=== PATIENT | male | born 1960 | race African-American/Black ===

== ENCOUNTER 2020-01-08 16:01 | Inpatient (IN) | payer MEDICARE, OTHER ==
[~2020-01-08] VITALS: Ht 169.1 cm; Wt 49.0 kg
[2020-01-08] MEDS ORDERED: TOPCARE ASPIRIN81 M1 PO (17:06)
[2020-01-08] MEDS ORDERED: TENORMIN50 MG PO (17:06)
[2020-01-08] MEDS ORDERED: HALDOL DEC100 MG/1 M IM (17:07)
[2020-01-08] MEDS ORDERED: HALDOL DEC50 MG/1 ML IM (17:08)
[2020-01-08] MEDS ORDERED: PROTONIX40 MG PO (17:10)
[2020-01-08] MEDS ORDERED: MELATONIN3 MG PO (17:10)
[2020-01-08] MEDS ORDERED: ENULOSE10 GM/151 PO (17:11)
[2020-01-08] MEDS ORDERED: RIVASTIGMINE T1.5 M1 PO (17:11)
[2020-01-08] MEDS ORDERED: TRIHEXYPHENIDYL2 M3 PO (17:13)
[2020-01-08] MEDS ORDERED: PROAIR HFA8.5 GM INH (17:14)
[2020-01-08] MEDS ORDERED: RISPERDAL2 M1 PO (17:14)
[2020-01-08] MEDS ORDERED: ROBITUSSIN5 ML PO (17:15)
[2020-01-08] MEDS ORDERED: GEODON20 M1 IM (17:15)
[2020-01-08] MEDS ORDERED: HALDOL5 MG/1 ML IM (17:16)
[2020-01-08] MEDS ORDERED: HALOPERIDOL5 MG PO (17:16)
[2020-01-08] MEDS ORDERED: IBUPROFEN600 MG PO (17:17)
[2020-01-09 00:20] VITALS: BP 124/80
[2020-01-09 06:31] LABS: BASO % 0.4 % (0.0-1.0); EOS # 0.1 10*3/uL (0.0-0.4); EOS % 1.4 % (1.0-4.0); HEMATOCRIT 36.9 % (42.0-52.0); LYMPH % 39.6 % (27.0-41.0); MEAN CELL VOLUME 91.6 fl (80.0-94.0); MEAN CORPUSCULAR HGB 28.8 pg (27.0-31.0); MEAN CORPUSCULAR HGB CONC 31.4 g/dl (33.0-37.0); MEAN PLATELET VOLUME 8.4 fl (9.6-12.3); MONO # 0.4 10*3/uL (0.1-1.0); MONO % 8.1 % (3.0-9.0); NEUT # 2.6 10*3/uL (2.3-7.9); NEUT % 50.3 % (47.0-73.0); PLATELET COUNT AUTOMATED 215 10*3/uL (130-400); RED BLOOD COUNT 4.03 10*6/uL (4.50-5.90); WHITE BLOOD COUNT 5.1 10*3/uL (4.8-10.8)
[2020-01-09 06:57] LABS: ALBUMIN 3.1 gm/dl (3.1-4.5); BUN 11 mg/dl (7-24); CHLORIDE 99 mmol/L (98-107); POTASSIUM 4.4 mmol/L (3.5-5.1); SODIUM 134 mmol/L (136-145)
[2020-01-09 07:09] LABS: ALKALINE PHOSPHATASE 44 U/L (45-117); CHOLESTEROL 160 mg/dL (<200); HDL CHOLESTEROL 72 mg/dl (40-60); LDL CHOLESTEROL 79 mg/dL (9-159); SGOT/AST 44 IU/L (3-35); SGPT/ALT 41 U/L (12-78); TOTAL PROTEIN 6.3 gm/dL (6.4-8.2); TRIGLYCERIDES 47 mg/dl (<150); VLDL CHOLESTEROL 9 mg/dL (6-40)
[2020-01-09 07:31] VITALS: BP 131/85
[2020-01-09 12:32] LABS: BILIRUBIN NEGATIVE (NEGATIVE); BLOOD NEGATIVE (NEGATIVE); CLARITY CLEAR (CLEAR); COLOR YELLOW (YELLOW); EPITHELIAL CELLS 0-2; GLUCOSE NEGATIVE (NEGATIVE); KETONE TRACE (NEGATIVE); LEUKO ESTERASE NEGATIVE (NEGATIVE); NITRITE NEGATIVE (NEGATIVE); PH 7.5 (5.0-9.0); RBC 0-2 rbc/hpf (0-2); SPECIFIC GRAVITY 1.005 (1.005-1.030); UROBILINOGEN 0.2 E.U./dl (0.2-1.0); WBC 0-2 wbc/hpf (0-5)
[2020-01-09 12:33] LABS: YEAST 1+
[2020-01-09 13:24] LABS: VITAMIN D, 25-HYDROXY 21.9 ng/mL (30-100)
[2020-01-09 20:00] VITALS: BP 117/74
[2020-01-10 07:26] VITALS: BP 128/83
[2020-01-10 19:40] VITALS: BP 112/67
[2020-01-11 07:20] VITALS: BP 129/75
[2020-01-11] MEDS ORDERED: DEPAKOTE500 MG PO (09:48)
[2020-01-11] MEDS ORDERED: RISPERDAL3 M1 PO (09:50)
== END 2020-01-11 13:19 | DRG 885 ==
LOC: 3N 16:01
PROVIDERS: ADMIT Psychiatry & Neurology Psychiatry
DX: F25.9 Schizoaffective disorder, unspecified (principal); F03.90 Unspecified dementia, unspecified severity, without behavioral disturbance, psychotic disturbance, mood disturbance, and anxiety; E11.9 Type 2 diabetes mellitus without complications; I10 Essential (primary) hypertension; K21.9 Gastro-esophageal reflux disease without esophagitis; R00.0 Tachycardia, unspecified; F17.200 Nicotine dependence, unspecified, uncomplicated; Z79.82 Long term (current) use of aspirin; Z79.899 Other long term (current) drug therapy